=== PATIENT | male | born 2000 | race Two or more races ===

== ENCOUNTER 2024-07-25 12:55 | Emergency (ER) | payer MEDICAID, SELFPAY ==
--- NOTE | ~2024-07-25 | XR_ITS ---
EXAMINATION: XR CHEST CLINICAL INFORMATION: resolved chest pain COMPARISON: None available. TECHNIQUE: Frontal view of the chest was obtained. FINDINGS: No consolidation, pleural effusion or pneumothorax. Asymmetric fullness in the right pulmonary hilum. Cardiomediastinal silhouette size is normal. Osseous structures are intact. XR/XR chest 1V IMPRESSION: Asymmetric opacity fullness right pulmonary hilum. Electronically signed by: Elan Marquez MD 07/25/2024 01:38 PM EDT
[2024-07-25 13:00] VITALS: BP 188/123; PULSE 84; RESP 20; TEMP 37; O2SAT 98; BMI 30.5
--- NOTE | 2024-07-25 13:05 | ECG_ITS ---
Test Reason : RESOLVED CP Blood Pressure : */* mmHG Vent. Rate : 67 BPM Atrial Rate : 67 BPM P-R Int : 146 ms QRS Dur : 84 ms QT Int : 372 ms P-R-T Axes : 45 40 -15 degrees QTcB Int : 393 ms Normal sinus rhythm Nonspecific T wave abnormality Abnormal ECG No previous ECGs available Referred By: Jorge L Barriga Electronically Signed By: PAULINO MERIDA
--- NOTE | 2024-07-25 13:05 | ED.GENADULT ---
HPI - General Adult General Chief complaint: Recheck/Abnormal Lab/Rx Stated complaint: chest pressure Time Seen by Provider: 07/25/24 17:02 History of Present Illness HPI narrative: Patient seen by Rosalie and note written by Rosalie Related Data Previous Rx's ?Medication ?Instructions ?Recorded bisoprolol fumarate 5 mg tablet 5 mg PO DAILY 30 days #30 tabs 07/25/24 Allergies Allergy/AdvReac Type Severity Reaction Status Date / Time No Known Allergies Allergy Verified 07/25/24 13:00 [facility] Social History Social History Advance Directives: No Advance Directives Information Provided: No Physical Exam ED Vital Signs: Vital Signs - 24 hr 07/25/24 13:00 07/25/24 16:43 07/25/24 16:53 Temperature 98.6 F 98 F Pulse Rate 84 72 76 Respiratory Rate 20 18 16 Blood Pressure 188/123 H 142/94 H Pulse Oximetry 98 100 99 Oxygen Delivery Method Room Air Room Air Room Air 07/25/24 17:02 07/25/24 17:24 07/25/24 18:05 Temperature 98.1 F Pulse Rate 80 76 Respiratory Rate 20 16 Blood Pressure 146/101 H 166/99 H 158/101 H Pulse Oximetry 100 99 Oxygen Delivery Method Room Air Room Air BMI result Body Mass Index 30.5 Course Course Course Narrative: RME: 23-year-old male history of hypertension presents to ED for medication refill and resolved chest pain. Patient informs pain and he ran out of versus bisoprolol 5 mg that he takes daily. Patient had chest pain this morning but no longer has any chest pain. Patient is hypertensive, he missed his meds. NIH score is 0. Labs EKG ordered Medications Administered Discontinued Medications Generic Name Dose Route Start Last Admin Trade Name Freq PRN Reason Stop Dose Admin Bisoprolol Fumarate 5 mg 07/25/24 17:27 07/25/24 18:00 Bisoprolol Fumarate 5 Mg Tablet PO 07/25/24 17:28 5 mg ONCE ONE Administration Medical Decision Making Lab Data 07/25/24 15:58 07/25/24 15:58 Labs: Lab Results 07/25/24 Range/Units 15:58 WBC 7.5 (4.8-10.8) X10*3/uL RBC 5.25 (4.60-5.80) X10*6/uL Hgb 17.0 (14.0-18.0) g/dl Hct 48.2 (42.0-52.0) % MCV 91.8 (80.0-98.0) fL MCH 32.4 (27.0-33.0) pg MCHC 35.3 (31.0-36.0) g/dl RDW 12.4 (11.0-16.0) % Plt Count 285 (160-400) X10*3/uL MPV 9.4 (9.4-12.4) fL Immature Gran % (Auto) 0.4 (0.0-0.4) % Neut % (Auto) 56.3 (45-73) % Lymph % (Auto) 32.8 (20-40) % [place] % (Auto) 7.7 (2-11) % Eos % (Auto) 2.3 (0-4) % Baso % (Auto) 0.5 (0-2) % Lymph # (Auto) 2.4 (1.2-4.9) X10*3/uL [place] # (Auto) 0.6 (0.1-1.2) X10*3/uL Eos # (Auto) 0.2 (0.0-0.4) X10*3/uL Baso # (Auto) 0.0 (0.0-0.2) X10*3/uL Abs Immat Gran (auto) 0.03 (0.00-0.03) X10*3/uL Absolute Neuts (auto) 4.2 (2.0-8.3) x10*3/uL Absolute Nucleated RBC 0.000 (0.0-0.012) X10*3/uL Nucleated RBC % (auto) 0.0 (0.0-0.2) /100WBC PT 11.0 (10.9-12.4) SEC INR 0.9 (0.9-1.1) APTT 35.9 (26.0-36.8) SEC D-Dimer High Sensitivty < 150 NG/ML Sodium 139 (135-145) mmol/L Potassium 4.1 (3.3-5.1) mmol/L Chloride 103 (96-108) mmol/L Carbon Dioxide 24 (22-29) mmol/L Anion Gap 16 (12-20) BUN 11 (9-16) mg/dL Creatinine 0.90 (0.5-1.4) mg/dL Estim Creat Clear Calc 163.9 Estimated GFR > 60 Random Glucose 86 (60-115) mg/dL Calcium 9.8 (8.4-10.2) mg/dL Total Bilirubin 0.6 (0.0-1.0) mg/dL AST 37 (5-37) U/L ALT 74 H (0-40) U/L Alkaline Phosphatase 89 (39-117) U/L Troponin I High Sens < 2.7 (<3.5-35.0) ng/L B-Natriuretic Peptide < 10 (<100) pg/mL Total Protein 8.5 H (6.5-8.0) g/dL Albumin 4.6 (3.5-5.0) g/dL Attestation Attending Attestation: I was personally present and available for consultation in the ED. I have reviewed everything on the chart that is available and agree with the documentation provided by the SELENA including discussion about the assessment, treatment plan and discussion. Based on medical record the care appears appropriate. Chico Esteban MD [facility] Emergency Medicine Discharge Plan Discharge Clinical Impression: Hypertension Patient Disposition: Home, Self-Care Instructions: Hypertension (ED) Additional Instructions: Your blood work is reassuring Your x-ray shows fullness of your right pulmonary hilum. This needs to be followed up with your primary care doctor upon your return to home. You likely need a CAT scan or further imaging. Nothing to be done emergently. If your chest pain persists, worsens, is constant, you have shortness of breath, lightheadedness/dizziness, headache return to the ED A prescription for your blood pressure medication was sent to the pharmacy, please do not miss any doses. Monitor blood pressure closely Prescriptions: New bisoprolol fumarate 5 mg tablet 5 mg PO DAILY 30 Days Qty: 30 0RF Referrals: Physician,Unknown J [Primary Care Provider] - 1 week Interventions: ED Discharge Assessment Last Done: 07/25/24 18:05 Discharge Date/Time: 07/25/24 18:06 Print Language: Belarusian
--- NOTE | 2024-07-25 15:49 | PC.NURSE ---
Pt getting upset in triage that he has had to wait so long, labs still need to be drawn, every time they have tried to draw him he is not in waiting room as he keeps going in and out to side walk outside to talk on the phone. Pt alerted to stay in ED, tech aware that he may be outside.
[2024-07-25 16:05] LABS: Basophils Percent Auto 0.5 % (0-2); Eosinophils Absolute Auto 0.2 X10*3/uL (0.0-0.4); Eosinophils Percent Auto 2.3 % (0-4); Hematocrit 48.2 % (42.0-52.0); Imm Gran Abs Auto 0.03 X10*3/uL (0.00-0.03); Imm Gran Pct Auto 0.4 % (0.0-0.4); Lymphocytes Absolute Auto 2.4 X10*3/uL (1.2-4.9); Lymphocytes Percent Auto 32.8 % (20-40); MANUAL DIFF FLAG NO; Mean Corpuscular HGB Conc 35.3 g/dl (31.0-36.0); Mean Corpuscular Hemoglobin 32.4 pg (27.0-33.0); Mean Corpuscular Volume 91.8 fL (80.0-98.0); Mean Platelet Volume 9.4 fL (9.4-12.4); Monocytes Absolute Auto 0.6 X10*3/uL (0.1-1.2); Monocytes Percent Auto 7.7 % (2-11); Neutrophils Absolute Auto 4.2 x10*3/uL (2.0-8.3); Neutrophils Percent Auto 56.3 % (45-73); Platelet Count 285 X10*3/uL (160-400); Red Blood Count 5.25 X10*6/uL (4.60-5.80); Red Cell Distribution Width 12.4 % (11.0-16.0); White Blood Count 7.5 X10*3/uL (4.8-10.8)
[2024-07-25 16:10] LABS: INTERNATIONAL NORM RATIO 0.9 (0.9-1.1)
[2024-07-25 16:12] LABS: Partial Thromboplastin Time 35.9 SEC (26.0-36.8)
[2024-07-25 16:26] LABS: B Type Natriuretic Peptide < 10 pg/mL (<100)
[2024-07-25 16:34] LABS: Alanine Aminotransferase 74 U/L (0-40); Albumin Level 4.6 g/dL (3.5-5.0); Alkaline Phosphatase 89 U/L (39-117); Anion Gap 16 (12-20); Aspartate Amino Transferase 37 U/L (5-37); Bilirubin Total 0.6 mg/dL (0.0-1.0); Blood Urea Nitrogen 11 mg/dL (9-16); Calcium 9.8 mg/dL (8.4-10.2); Carbon Dioxide 24 mmol/L (22-29); Chloride 103 mmol/L (96-108); Creatinine Clr Calc Pharmacy 163.9; Estimated Glomerular Filt Rate > 60; Glucose Random 86 mg/dL (60-115); Potassium 4.1 mmol/L (3.3-5.1); Sodium 139 mmol/L (135-145); Total Protein 8.5 g/dL (6.5-8.0)
[2024-07-25 16:42] LABS: Troponin-I High Sensitivity < 2.7 ng/L (<3.5-35.0)
[2024-07-25 16:43] VITALS: BP 142/94; PULSE 72; RESP 18; TEMP 36.6; O2SAT 100
--- NOTE | 2024-07-25 16:47 | PC.NURSE ---
This RN talked with pt and mom with health technician hearing, mom is very upset about wait time and not letting this RN explain what is currently happening, this RN explained that he did delay is care since pt was absent from waiting room multiple times. Plan of care gone over with pt and pt mom, they were given multiple options at this time, pt himself is calm and cooperative and understands what is happening, at this time pt choosing to wait, discharge door operator made aware. Security also talking with pt mom in waiting room d.t her getting escalated at this time.
[2024-07-25 16:49] LABS: D Dimer High Sensitivity < 150 NG/ML
[2024-07-25 16:53] VITALS: PULSE 76; RESP 16; O2SAT 99
[2024-07-25 17:02] VITALS: BP 146/101; PULSE 80; RESP 20; O2SAT 100
[2024-07-25 17:24] VITALS: BP 166/99
--- NOTE | 2024-07-25 17:28 | ED.GENADULT ---
HPI - General Adult General Chief complaint: Recheck/Abnormal Lab/Rx Stated complaint: chest pressure Time Seen by Provider: 07/25/24 17:02 Source: patient, EMS, RN notes reviewed and old records reviewed Mode of arrival: EMS History of Present Illness ED Provider: Rosalie Oneal PA-C HPI narrative: 23-year-old male with a past medical history of hypertension on Bisoprolol 5 mg daily, presenting to the ED complaining of chest pressure since last night and elevated BP. Denies chest pressure at present. States he is currently visiting here from [facility] until August 24, however ran out of his Bisoprolol 2 days ago. Denies SOB, headache, lightheadedness/dizziness, numbness, tingling, weakness, abdominal pain, nausea, vomiting. Patient looking for prescription to hold him over until he can get back home Related Data Previous Rx's ?Medication ?Instructions ?Recorded bisoprolol fumarate 5 mg tablet 5 mg PO DAILY 30 days #30 tabs 07/25/24 Allergies Allergy/AdvReac Type Severity Reaction Status Date / Time No Known Allergies Allergy Verified 07/25/24 13:00 Review of Systems Review of Systems: Yes all other systems are reviewed and are negative Constitutional: Constitutional: Reports as per HPI Neurologic: Denies Abnormal speech present [facility] Past Medical History Attestation statement: The following information was validated with the patient. Source: old records reviewed Social History Social History Advance Directives: No Advance Directives Information Provided: No Physical Exam ED Vital Signs: Vital Signs - 24 hr 07/25/24 13:00 07/25/24 16:43 07/25/24 16:53 Temperature 98.6 F 98 F Pulse Rate 84 72 76 Respiratory Rate 20 18 16 Blood Pressure 188/123 H 142/94 H Pulse Oximetry 98 100 99 Oxygen Delivery Method Room Air Room Air Room Air 07/25/24 17:02 07/25/24 17:24 07/25/24 18:05 Temperature 98.1 F Pulse Rate 80 76 Respiratory Rate 20 16 Blood Pressure 146/101 H 166/99 H 158/101 H Pulse Oximetry 100 99 Oxygen Delivery Method Room Air Room Air BMI result Body Mass Index 30.5 Const General: cooperative, healthy appearing and no acute distress Orientation/consciousness: patient oriented x3 Limitations: no limitations HENMT Head: Yes normal to inspection and Yes atraumatic Ears: hearing grossly normal bilaterally General nose exam: Normal external nose present Face and sinus: Yes normal facial exam Eyes General: appearance normal, both eyes and all related structures EOM: EOMs intact bilaterally Neck Neck: Yes normal visual inspection and Yes no meningeal signs Resp Effort & Inspection: normal respiratory effort and no respiratory distress Auscultation: clear to auscultation bilaterally, no crackles, no rales, no rhonchi and no wheezes Cardio Rate: regular rate Heart sounds: S1 normal heart sound present and S2 normal heart sound present GI Inspection: Yes normal to inspection Palpation (GI): Soft to palpation, nontender, no guarding and not rigid Skin Rashes: no rashes Wounds: no wounds Neuro General: patient oriented x3, gait normal, tone normal, moves all extremities, no meningeal signs, no focal motor deficits and CN's II-XI intact bilaterally Cranial nerves: Yes CN's II-XII intact bilaterally and Yes Bilaterally intact EOM present Cognition (Neuro): normal cognition Speech: No Abnormal speech present Gait exam (Neuro): Normal gait present Motor exam (neuro): 5/5 motor strength present throughout Extrem General: Yes normal to inspection Course Course Course Narrative: -1730--labs reassuring including negative D-dimer and troponin XR chest 1V IMPRESSION: Asymmetric opacity fullness right pulmonary hilum. > will need outpatient further w/u > blood pressure 166/99. Patient is safe for discharge home at this time. Will send prescription for 1 month supply of medication to the pharmacy. Patient will dose with 1 time dose of Bisoprolol prior to discharge Results discussed with patient including worrisome signs and symptoms and strict return precautions, and when to return to the emergency department. They verbalized understanding and feel safe for discharge at this time. Medications Administered Discontinued Medications Generic Name Dose Route Start Last Admin Trade Name Freq PRN Reason Stop Dose Admin Bisoprolol Fumarate 5 mg 07/25/24 17:27 07/25/24 18:00 Bisoprolol Fumarate 5 Mg Tablet PO 07/25/24 17:28 5 mg ONCE ONE Administration Medical Decision Making Medical Decision Making [facility] Narrative: 23-year-old male with a past medical history of hypertension on Bisoprolol 5 mg daily, presenting to the ED complaining of chest pressure since last night and elevated BP. On exam initially hypertensive 188/123 in triage, NAD, nontoxic appearing, asymptomatic, denies chest pain or other symptoms at present. No focal deficits. Concern for uncontrolled hypertension secondary to medication noncompliance. Rule out hypertensive urgency/emergency. Lower suspicion for acute ACS, PE or ICH Plan: EKG, labs ordered in triage, BP monitoring Please refer to course for remaining clinical decision making, interpretation of labs/imaging results, and discussions with consultants and/or family members. Differential Diagnosis Differential Diagnoses: The differential diagnosis associated with the presentation includes As above Admission/Observation Consideration of admission/observation: Escalation of care including admission/observation considered Lab Data MDM Lab Attestation statement: I reviewed the patient's lab results. 07/25/24 15:58 07/25/24 15:58 Labs: Lab Results 07/25/24 Range/Units 15:58 WBC 7.5 (4.8-10.8) X10*3/uL RBC 5.25 (4.60-5.80) X10*6/uL Hgb 17.0 (14.0-18.0) g/dl Hct 48.2 (42.0-52.0) % MCV 91.8 (80.0-98.0) fL MCH 32.4 (27.0-33.0) pg MCHC 35.3 (31.0-36.0) g/dl RDW 12.4 (11.0-16.0) % Plt Count 285 (160-400) X10*3/uL MPV 9.4 (9.4-12.4) fL Immature Gran % (Auto) 0.4 (0.0-0.4) % Neut % (Auto) 56.3 (45-73) % Lymph % (Auto) 32.8 (20-40) % [place] % (Auto) 7.7 (2-11) % Eos % (Auto) 2.3 (0-4) % Baso % (Auto) 0.5 (0-2) % Lymph # (Auto) 2.4 (1.2-4.9) X10*3/uL [place] # (Auto) 0.6 (0.1-1.2) X10*3/uL Eos # (Auto) 0.2 (0.0-0.4) X10*3/uL Baso # (Auto) 0.0 (0.0-0.2) X10*3/uL Abs Immat Gran (auto) 0.03 (0.00-0.03) X10*3/uL Absolute Neuts (auto) 4.2 (2.0-8.3) x10*3/uL Absolute Nucleated RBC 0.000 (0.0-0.012) X10*3/uL Nucleated RBC % (auto) 0.0 (0.0-0.2) /100WBC PT 11.0 (10.9-12.4) SEC INR 0.9 (0.9-1.1) APTT 35.9 (26.0-36.8) SEC D-Dimer High Sensitivty < 150 NG/ML Sodium 139 (135-145) mmol/L Potassium 4.1 (3.3-5.1) mmol/L Chloride 103 (96-108) mmol/L Carbon Dioxide 24 (22-29) mmol/L Anion Gap 16 (12-20) BUN 11 (9-16) mg/dL Creatinine 0.90 (0.5-1.4) mg/dL Estim Creat Clear Calc 163.9 Estimated GFR > 60 Random Glucose 86 (60-115) mg/dL Calcium 9.8 (8.4-10.2) mg/dL Total Bilirubin 0.6 (0.0-1.0) mg/dL AST 37 (5-37) U/L ALT 74 H (0-40) U/L Alkaline Phosphatase 89 (39-117) U/L Troponin I High Sens < 2.7 (<3.5-35.0) ng/L B-Natriuretic Peptide < 10 (<100) pg/mL Total Protein 8.5 H (6.5-8.0) g/dL Albumin 4.6 (3.5-5.0) g/dL Independent Interpretation I performed an independent interpretation of an: EKG (My interpretation EKG normal sinus rhythm rate of 67. WI interval 146. No previous EKGs to compare. No STEMI ) Radiology Impression Discussion of test interpretation with radiology: I have reviewed the radiologist's reading. External Record Review External record reviewed: Inpatient record, Office record, Outpatient record, Prior outpatient labs, Prior outpatient radiology, Primary care record and Outside ED record Tests considered The following testing was considered but not selected: As above Prescription Management I considered prescription management with: Other Chronic Conditions Patient?s care impacted by: Hypertension Social Determinants Patient?s care significantly limited by Social Determinants of Health including: Other Social Determinant of Health Discharge Plan Discharge Clinical Impression: Hypertension Patient Disposition: Home, Self-Care Instructions: Hypertension (ED) Additional Instructions: Your blood work is reassuring Your x-ray shows fullness of your right pulmonary hilum. This needs to be followed up with your primary care doctor upon your return to home. You likely need a CAT scan or further imaging. Nothing to be done emergently. If your chest pain persists, worsens, is constant, you have shortness of breath, lightheadedness/dizziness, headache return to the ED A prescription for your blood pressure medication was sent to the pharmacy, please do not miss any doses. Monitor blood pressure closely Prescriptions: New bisoprolol fumarate 5 mg tablet 5 mg PO DAILY 30 Days Qty: 30 0RF Referrals: Physician,Petrona J [Primary Care Provider] - 1 week Interventions: ED Discharge Assessment Last Done: 07/25/24 18:05 Discharge Date/Time: 07/25/24 18:06 Print Language: Icelandic
[2024-07-25] MEDS: Bisoprolol Fumarate 5 MG TABLET PO (18:00)
[2024-07-25 18:05] VITALS: BP 158/101; PULSE 76; RESP 16; TEMP 36.7; O2SAT 99
== END 2024-07-25 18:06 | disposition home or self-care (01) ==
PROVIDERS: Physician Assistant; Emergency Provider Emergency Medicine
DX: I10 Essential (primary) hypertension (principal); R07.9 Chest pain, unspecified; Z79.899 Other long term (current) drug therapy
CPT/HCPCS: 36415; 71045; 80053; 83880; 84484; 85025; 85379; 85610; 85730; 93005; 99283; 99284

== ENCOUNTER → 2024-07-25 13:05 | Outpatient (BNV) | payer SELFPAY | PROVIDERS: Emergency Provider Emergency Medicine; Visit Provider Internal Medicine | DX: R94.31 Abnormal electrocardiogram [ECG] [EKG] (principal); Z13.6 Encounter for screening for cardiovascular disorders | CPT/HCPCS: 93010 ==

== ENCOUNTER → 2024-07-25 13:06 | Outpatient (BNV) | payer SELFPAY | PROVIDERS: Visit Provider Radiology Diagnostic Radiology | DX: R91.8 Other nonspecific abnormal finding of lung field (principal) | CPT/HCPCS: 71045 ==